=== PATIENT | female | born 1960 | race Caucasian/White ===

== ENCOUNTER 2021-10-11 20:12 | Emergency (ER) | payer OTHER, MEDICARE ==
[2021-10-11] VITALS (7 sets, daily range): BP systolic 122–174; BP diastolic 72–105
[2021-10-11 20:57] LABS: HEMATOCRIT 45.6 % (37.0-47.0); HEMOGLOBIN 14.5 g/dl (12.0-16.0); IMMATURE GRANULOCYTES 0.1 % (0.0-5.0); MEAN CELL VOLUME 90.8 fL CALC (80.0-100.0); MEAN CORPUSCULAR HGB 28.9 pG CALC (26.0-32.0); MEAN CORPUSCULAR HGB CONC 31.8 g/dL CAL (32.0-36.0); NEUT# 6.38 thou/uL (2.00-7.15); RED BLOOD COUNT 5.02 mill/uL (4.20-5.60); RED CELL DISTRI WIDTH 13.1 % (11.5-15.5)
[2021-10-11 21:11] LABS: ALBUMIN 4.8 g/dL (3.2-5.0); ALKALINE PHOSPHATASE 115 u/l (38-126); ANION GAP 11 (6-22 (CALC)); BILIRUBIN, TOTAL 0.6 mg/dL (0.0-1.4); BUN 15 mg/dL (7-17); BUN/CREATININE RATIO 16 (12-20 (CALC)); CARBON DIOXIDE 30 mmol/l (22-30); CHLORIDE 101 mmol/l (95-108); GFR FOR AFR.AMER. > 60 ML/MIN (>=60 (CALC)); GFR OTHER RACES 57 ML/MIN (>=60 (CALC)); POTASSIUM 3.9 mmol/l (3.5-5.1); SGOT/AST 36 u/l (14-36); SODIUM 138 mmol/l (137-146); TOTAL PROTEIN 8.9 g/dL (6.3-8.2)
[2021-10-11] MEDS ORDERED: RITALIN20 MG PO (22:12)
[2021-10-11] MEDS ORDERED: CYMBALTA20 MG PO (22:15)
[2021-10-11 22:23] LABS: URINE BILIRUBIN - DIPSTICK NEGATIVE (NEGATIVE); URINE BLOOD DIPSTICK NEGATIVE (NEGATIVE); URINE COLOR YELLOW; URINE GLUCOSE - DIPSTICK NEGATIVE (NEGATIVE); URINE KETONE NEGATIVE (NEGATIVE); URINE LEUK ESTERASE TRACE (NEGATIVE); URINE PROTEIN - DIPSTICK NEGATIVE (NEG-TRACE); URINE SPECIFIC GRAVITY 1.025; URINE UROBILINOGEN - DIPSTICK 0.2 E.U./dL (0.2)
[2021-10-11 22:27] LABS: URINE NITRITE - DIPSTICK NEGATIVE (Negative)
[2021-10-11] MEDS ORDERED: IMITREX100 M1 PO (22:37)
== END 2021-10-11 23:07 | disposition home or self-care (01) | DRG 103 ==
LOC: ED 20:12
PROVIDERS: Family Medicine
DX: G43.909 Migraine, unspecified, not intractable, without status migrainosus (principal); M06.9 Rheumatoid arthritis, unspecified; G20 Parkinson's disease; Z20.822 Contact with and (suspected) exposure to COVID-19

== ENCOUNTER 2021-12-09 14:20 | Emergency (ER) | payer MEDICARE, OTHER ==
[~2021-12-09] VITALS: Ht 162.6 cm; Wt 68.1 kg
[~2021-12-09 14:20] MED LIST: CYMBALTA20 MG PO; IMITREX100 M1 PO; RITALIN20 MG PO
[2021-12-09 14:28] VITALS: BP 117/73
[2021-12-09 14:30] VITALS: BP 121/65
[2021-12-09] MEDS ORDERED: CEPHALEXIN500 M1 PO (14:30)
[2021-12-09 15:00] VITALS: BP 103/62
== END 2021-12-09 15:07 | disposition home or self-care (01) ==
LOC: ED 14:20
DX: S01.441A Puncture wound with foreign body of right cheek and temporomandibular area, initial encounter (principal); M06.9 Rheumatoid arthritis, unspecified; G20 Parkinson's disease; W45.8XXA Other foreign body or object entering through skin, initial encounter; Y93.19 Activity, other involving water and watercraft; Y92.008 Other place in unspecified non-institutional (private) residence as the place of occurrence of the external cause

== ENCOUNTER 2022-04-23 05:48 | Emergency (ER) | payer MEDICARE, OTHER ==
[~2022-04-23] VITALS: Ht 162.6 cm; Wt 74.0 kg
[2022-04-23] VITALS (10 sets, daily range): BP systolic 103–147; BP diastolic 59–82
[~2022-04-23 05:48] MED LIST changes: +CEPHALEXIN500 M1 PO
[2022-04-23 06:19] LABS: BASO% 0.3 % (0-3); HEMATOCRIT 41.6 % (37.0-47.0); HEMOGLOBIN 12.9 g/dl (12.0-16.0); IMMATURE GRANULOCYTES 0.2 % (0.0-5.0); LYMPH% 21.6 % (15-41); MEAN CELL VOLUME 91.2 fL CALC (80.0-100.0); MEAN CORPUSCULAR HGB 28.3 pG CALC (26.0-32.0); MONO% 8.3 % (2-13); NEUT# 4.32 thou/uL (2.00-7.15); NEUT% 68.6 % (42-76); RED BLOOD COUNT 4.56 mill/uL (4.20-5.60); RED CELL DISTRI WIDTH 12.4 % (11.5-15.5)
[2022-04-23 06:30] LABS: ALBUMIN 4.3 g/dL (3.2-5.0); ALKALINE PHOSPHATASE 75 u/l (38-126); ANION GAP 9 (6-22 (CALC)); BILIRUBIN, TOTAL 0.2 mg/dL (0.02-1.3); BUN 11 mg/dL (7-17); BUN/CREATININE RATIO 12 (12-20 (CALC)); CARBON DIOXIDE 25 mmol/l (22-30); CHLORIDE 106 mmol/l (95-108); CREATININE 0.9 mg/dL (0.5-1.0); GFR FOR AFR.AMER. > 60 ML/MIN (>=60 (CALC)); GFR OTHER RACES > 60 ML/MIN (>=60 (CALC)); POTASSIUM 3.6 mmol/l (3.5-5.1); SGOT/AST 35 u/l (14-36); SODIUM 136 mmol/l (137-146); TOTAL PROTEIN 7.7 g/dL (6.3-8.2)
[2022-04-23 06:43] LABS: ACT PARTIAL THROMBO TIME 24.3 SECONDS (20.0-32.5); PROTHROMBIN TIME 9.9 SECONDS (9.0-12.5)
[2022-04-23 07:10] LABS: D-DIMER 0.5 mg/L (0.19-0.60)
[2022-04-23] MEDS ORDERED: TORADOL PO (07:52)
== END 2022-04-23 08:27 | disposition home or self-care (01) ==
LOC: ED 05:48
PROVIDERS: Family Medicine
DX: R07.89 Other chest pain (principal); M06.9 Rheumatoid arthritis, unspecified

== ENCOUNTER 2022-05-25 11:26 | Emergency (ER) | payer MEDICARE, OTHER ==
[~2022-05-25] VITALS: Ht 162.6 cm; Wt 80.0 kg
[~2022-05-25 11:26] MED LIST changes: +TORADOL PO
[2022-05-25] MEDS ORDERED: CELEXA10 MG PO (11:46)
[2022-05-25] MEDS ORDERED: ZYRTEC10 MG PO (11:47)
[2022-05-25] MEDS ORDERED: TEMAZEPAM15 MG PO (11:49)
[2022-05-25] MEDS ORDERED: ARNUITY EL50 MCG/ACT (11:51)
[2022-05-25] MEDS ORDERED: CRESTOR5 MG PO (11:52)
[2022-05-25] MEDS ORDERED: METHYLPHENID5 MG PO (11:53)
[2022-05-25] MEDS ORDERED: SUMATRIPTAN25 MG PO (11:54)
[2022-05-25] MEDS ORDERED: VITAMIN D31000 UNI1 PO (11:55)
[2022-05-25] MEDS ORDERED: AMOX-POT CLA PO (11:57)
[2022-05-25] MEDS ORDERED: OMEPRAZOLE20 MG PO (11:58)
[2022-05-25 12:43] LABS: ALBUMIN 4.7 g/dL (3.2-5.0); ALKALINE PHOSPHATASE 76 u/l (38-126); ANION GAP 13 (6-22 (CALC)); BUN 13 mg/dL (7-17); BUN/CREATININE RATIO 14 (12-20 (CALC)); CARBON DIOXIDE 26 mmol/l (22-30); CHLORIDE 105 mmol/l (95-108); CREATININE 0.9 mg/dL (0.5-1.0); GFR FOR AFR.AMER. > 60 ML/MIN (>=60 (CALC)); GFR OTHER RACES > 60 ML/MIN (>=60 (CALC)); POTASSIUM 4.8 mmol/l (3.5-5.1); SGOT/AST 37 u/l (14-36); SODIUM 139 mmol/l (137-146)
[2022-05-25 12:50] LABS: BILIRUBIN, TOTAL 0.5 mg/dL (0.02-1.3)
[2022-05-25 13:07] LABS: BASO% 0.5 % (0-3); EOS% 2.7 % (0-8); HEMATOCRIT 46.5 % (37.0-47.0); HEMOGLOBIN 14.3 g/dl (12.0-16.0); IMMATURE GRANULOCYTES 0.2 % (0.0-5.0); LYMPH% 27.6 % (15-41); MEAN CELL VOLUME 91.2 fL CALC (80.0-100.0); MEAN CORPUSCULAR HGB CONC 30.8 g/dL CAL (32.0-36.0); NEUT# 3.64 thou/uL (2.00-7.15); RED BLOOD COUNT 5.1 mill/uL (4.20-5.60); RED CELL DISTRI WIDTH 12.3 % (11.5-15.5)
[2022-05-25 13:21] VITALS: BP 134/79
== END 2022-05-25 13:40 | disposition home or self-care (01) ==
LOC: ED 11:26
PROVIDERS: Family Medicine
DX: J11.1 Influenza due to unidentified influenza virus with other respiratory manifestations (principal); M06.9 Rheumatoid arthritis, unspecified; G20 Parkinson's disease; Z20.822 Contact with and (suspected) exposure to COVID-19

== ENCOUNTER 2022-06-02 21:41 | Emergency (ER) | payer MEDICARE, OTHER ==
[2022-06-02] VITALS (9 sets, daily range): BP systolic 131–163; BP diastolic 59–82
[~2022-06-02] VITALS: Ht 162.6 cm; Wt 75.0 kg
[~2022-06-02 21:41] MED LIST changes: +AMOX-POT CLA PO; +ARNUITY EL50 MCG/ACT; +CELEXA10 MG PO; +CRESTOR5 MG PO; +METHYLPHENID5 MG PO; +OMEPRAZOLE20 MG PO; +SUMATRIPTAN25 MG PO; +TEMAZEPAM15 MG PO; +VITAMIN D31000 UNI1 PO; +ZYRTEC10 MG PO
[2022-06-02 22:00] LABS: BASO% 0.6 % (0-3); EOS% 2.8 % (0-8); HEMATOCRIT 41.1 % (37.0-47.0); HEMOGLOBIN 12.8 g/dl (12.0-16.0); IMMATURE GRANULOCYTES 0.4 % (0.0-5.0); LYMPH% 33.2 % (15-41); MEAN CELL VOLUME 89.5 fL CALC (80.0-100.0); MEAN CORPUSCULAR HGB 27.9 pG CALC (26.0-32.0); MEAN CORPUSCULAR HGB CONC 31.1 g/dL CAL (32.0-36.0); MONO% 9.2 % (2-13); NEUT# 2.74 thou/uL (2.00-7.15); NEUT% 53.8 % (42-76); RED BLOOD COUNT 4.59 mill/uL (4.20-5.60); RED CELL DISTRI WIDTH 12.4 % (11.5-15.5)
[2022-06-02 22:13] LABS: ALBUMIN 4.3 g/dL (3.2-5.0); ALKALINE PHOSPHATASE 74 u/l (38-126); AMYLASE 123 u/l (30-110); ANION GAP 10 (6-22 (CALC)); BILIRUBIN, TOTAL 0.4 mg/dL (0.02-1.3); BUN 16 mg/dL (7-17); BUN/CREATININE RATIO 17 (12-20 (CALC)); CARBON DIOXIDE 28 mmol/l (22-30); CHLORIDE 102 mmol/l (95-108); CREATININE 0.9 mg/dL (0.5-1.0); GFR FOR AFR.AMER. > 60 ML/MIN (>=60 (CALC)); GFR OTHER RACES > 60 ML/MIN (>=60 (CALC)); LIPASE 100 u/l (23-300); POTASSIUM 3.8 mmol/l (3.5-5.1); SGOT/AST 61 u/l (14-36); SODIUM 136 mmol/l (137-146); TOTAL PROTEIN 7.5 g/dL (6.3-8.2)
[2022-06-02 23:45] LABS: URINE BILIRUBIN - DIPSTICK NEGATIVE (NEGATIVE); URINE BLOOD DIPSTICK NEGATIVE (NEGATIVE); URINE COLOR YELLOW; URINE GLUCOSE - DIPSTICK NEGATIVE (NEGATIVE); URINE KETONE NEGATIVE (NEGATIVE); URINE LEUK ESTERASE NEGATIVE (NEGATIVE); URINE PH 6.5 (4.5-8.0); URINE PROTEIN - DIPSTICK NEGATIVE (NEG-TRACE); URINE SPECIFIC GRAVITY 1.015; URINE UROBILINOGEN - DIPSTICK 0.2 E.U./dL (0.2)
[2022-06-02 23:48] LABS: URINE NITRITE - DIPSTICK NEGATIVE (Negative)
[2022-06-03] VITALS (9 sets, daily range): BP systolic 105–128; BP diastolic 64–73
== END 2022-06-03 03:11 | disposition home or self-care (01) ==
LOC: ED 21:41
PROVIDERS: Emergency Medicine
DX: R10.84 Generalized abdominal pain (principal); M06.9 Rheumatoid arthritis, unspecified; G20 Parkinson's disease
CPT/HCPCS: Q9967

== ENCOUNTER 2022-06-24 06:37 | Day surgery (SDC) | payer MEDICARE, OTHER ==
[~2022-06-24] VITALS: Ht 162.6 cm; Wt 75.8 kg
[2022-06-24 08:30] VITALS: BP 130/73
== END 2022-06-24 09:00 | disposition home or self-care (01) ==
LOC: ENDO 06:37 → ORM 07:30 → ENDO 09:00 → ORM 09:00
PROVIDERS: ATTEND Internal Medicine Gastroenterology
PROC: 0DBH8ZX Excision of Cecum, Via Natural or Artificial Opening Endoscopic, Diagnostic (ICD-10-PCS; principal; 2022-06-24)
PROC: 0DB48ZX Excision of Esophagogastric Junction, Via Natural or Artificial Opening Endoscopic, Diagnostic (ICD-10-PCS; 2022-06-24)
PROC: 0DB78ZX Excision of Stomach, Pylorus, Via Natural or Artificial Opening Endoscopic, Diagnostic (ICD-10-PCS; 2022-06-24)
DX: K21.00 Gastro-esophageal reflux disease with esophagitis, without bleeding (principal); K29.50 Unspecified chronic gastritis without bleeding; K44.9 Diaphragmatic hernia without obstruction or gangrene; K59.09 Other constipation; K63.89 Other specified diseases of intestine; K64.8 Other hemorrhoids; F41.9 Anxiety disorder, unspecified; Z80.0 Family history of malignant neoplasm of digestive organs

== ENCOUNTER 2024-03-06 11:06 | Emergency (ER) | payer MEDICARE, OTHER ==
[2024-03-06] VITALS (7 sets, daily range): BP systolic 119–139; BP diastolic 65–84
[~2024-03-06] VITALS: Ht 162.6 cm; Wt 67.0 kg
[~2024-03-06 11:06] MED LIST changes: +ADDERALL10 MG PO; +ALLERGY RE50 MCG/ACT; +DOCUSATE CAL240 MG PO; +FOLIC ACID1 MG PO; +LEVOFLOXACIN250 M1 PO; +LEVOFLOXACIN500MG PO; +METHYLPRED PO; +METHYLPRED4 MG PO; +NAPROXEN EC500 MG PO; +SENNA LAX8.6 M1 PO; +TOPAMAX50 M1 PO
[2024-03-06] MEDS ORDERED: TAM75CAP PO (12:06)
[2024-03-06] MEDS ORDERED: TRAMADOL HYDROC50 M1 PO (12:06)
== END 2024-03-06 12:26 | disposition home or self-care (01) ==
LOC: ED 11:06
DX: J11.1 Influenza due to unidentified influenza virus with other respiratory manifestations (principal); Z20.822 Contact with and (suspected) exposure to COVID-19

== ENCOUNTER 2024-03-13 09:39 | Emergency (ER) | payer MEDICARE, OTHER ==
[~2024-03-13] VITALS: Ht 162.6 cm; Wt 65.0 kg
[~2024-03-13 09:39] MED LIST changes: +TAM75CAP PO; +TRAMADOL HYDROC50 M1 PO
[2024-03-13 09:44] VITALS: BP 124/71
[2024-03-13 10:00] VITALS: BP 121/74
[2024-03-13 10:30] VITALS: BP 119/78
[2024-03-13] MEDS ORDERED: NAPROXEN500 MG PO (11:27)
[2024-03-13 11:37] VITALS: BP 119/78
== END 2024-03-13 11:45 | disposition home or self-care (01) ==
LOC: ED 09:39
DX: M19.031 Primary osteoarthritis, right wrist (principal)